=== PATIENT | female | born 1980 | race Caucasian/White ===

== ENCOUNTER 2018-11-26 10:14 | Outpatient (CLI) | payer BC ==
--- NOTE | 2018-11-26 13:49 | XRAY Report ---
Reason: INFLUENZA-LIKE ILLNESS, SHORTNESS OF BREATH Procedure Date: 11/26/2018 Accession Number: [id number] / [id number] Procedure: WCP - Chest 2 View X-Ray CPT Code: 76531 FULL RESULT: EXAM: CHEST RADIOGRAPHY EXAM DATE: 11/26/2018 10:30 AM. CLINICAL HISTORY: INFLUENZA-LIKE ILLNESS, SHORTNESS OF BREATH. COMPARISON: XR CHEST PA AND LAT 10/21/2012 7:59 AM. TECHNIQUE: 2 views. FINDINGS: Lungs/Pleura: There is increased opacity within the lingula. There is no evidence of pleural effusion. No pneumothorax. Mediastinum: Heart and mediastinal contours are unremarkable. Other: None. IMPRESSION: There is increased opacity within the lingula which is suspicious for pneumonia. Interval follow up film posttreatment could be used to demonstrate resolution of this process and to exclude underlying pathology. [facility]
== END 2018-11-26 10:15 | disposition home or self-care (01) ==
LOC: DI.WCP 10:14
PROVIDERS: ATTEND Physician Assistant
DX: B34.9 Viral infection, unspecified (principal); R06.02 Shortness of breath
CPT/HCPCS: 71046; 87275; 87276

== ENCOUNTER 2018-11-26 10:15 | Outpatient (CLI) | payer BC | END 2018-11-26 23:59 | disposition home or self-care (01) | LOC: LAB.R 10:15 | PROVIDERS: ATTEND Physician Assistant | DX: B34.9 Viral infection, unspecified (principal) | CPT/HCPCS: 87275; 87276 ==

== ENCOUNTER 2018-12-03 08:05 | Outpatient (CLI) | payer BC ==
--- NOTE | 2018-12-03 10:39 | XRAY Report ---
Reason: PNEUMONIA Procedure Date: 12/03/2018 Accession Number: [id number] / [id number] Procedure: WCP - Chest 2 View X-Ray CPT Code: 66587 FULL RESULT: EXAM: CHEST RADIOGRAPHY EXAM DATE: 12/03/2018 08:19 AM. CLINICAL HISTORY: Pneumonia. COMPARISON: CHEST 2 VIEW 11/26/2018 10:14 AM XR CHEST PA AND LAT 10/21/2012 7:59 AM. TECHNIQUE: 2 views. FINDINGS: Lungs/Pleura: Stable indistinctness of the left cardiac apex seen only on the frontal projection from the most recent exam, but a new finding when compared to studies of 2012. Remaining lungs are clear. There is no effusion or extraventilatory air. Mediastinum: Heart and mediastinal contours are unremarkable. Other: None. IMPRESSION: 1. Stable exam findings possibly indicating pericardial fat deposition, although vague lingular infiltrate is not entirely excluded. If clinically appropriate, consider follow-up exam in 3 months to ensure expected stability. [facility]
== END 2018-12-03 08:06 | disposition home or self-care (01) ==
LOC: DI.WCP 08:05
PROVIDERS: ATTEND Physician Assistant
DX: J18.9 Pneumonia, unspecified organism (principal)
CPT/HCPCS: 71046

== ENCOUNTER 2018-12-13 15:04 | Outpatient (CLI) | payer BC ==
--- NOTE | 2018-12-13 21:46 | XRAY Report ---
Reason: PNEUMONIA Procedure Date: 12/13/2018 Accession Number: [id number] / [id number] Procedure: WCP - Chest 2 View X-Ray CPT Code: 54695 FULL RESULT: EXAM: CHEST RADIOGRAPHY. EXAM DATE: 12/13/2018 03:17 PM. CLINICAL HISTORY: Pneumonia. Cough. COMPARISON: 12/03/2018. CT abdomen and pelvis 11/09/2009. TECHNIQUE: 2 views. FINDINGS: Lungs/Pleura: Mild indistinctness of the cardiac apex on the plain films due to a large pericardial fat deposit, confirmed on the prior CT exam. No acute focal opacities evident. No pleural effusion. No pneumothorax. Normal volumes. Mediastinum: Heart and mediastinal contours are unremarkable. Other: None. IMPRESSION: Normal 2-view chest radiography. [facility]
== END 2018-12-13 15:05 | disposition home or self-care (01) ==
LOC: DI.WCP 15:04
PROVIDERS: ATTEND Family Medicine
DX: J18.9 Pneumonia, unspecified organism (principal)
CPT/HCPCS: 71046

== ENCOUNTER 2019-05-31 08:00 | Outpatient (CLI) | payer BC ==
[2019-05-31 21:52] LABS: TRICHOMONAS VAGINALIS DNA NEGATIVE (NEGATIVE)
== END 2019-05-31 23:59 | disposition home or self-care (01) ==
LOC: LAB.R 08:00
PROVIDERS: ATTEND Physician Assistant
DX: Z20.2 Contact with and (suspected) exposure to infections with a predominantly sexual mode of transmission (principal)
CPT/HCPCS: 87491; 87591; 87661

== ENCOUNTER 2019-07-27 07:08 | Outpatient (CLI) | payer BC ==
--- NOTE | 2019-07-28 22:35 | Ultrasound Report ---
Reason: IUD SURVEILLANCE Procedure Date: 07/27/2019 Accession Number: [id number] / [id number] Procedure: US - Pelvic w/Transvaginal CPT Code: Final Report FULL RESULT: EXAM: PELVIC ULTRASOUND EXAM DATE: 07/27/2019 08:02 AM. CLINICAL HISTORY: IUD SURVEILLANCE. COMPARISON: None. TECHNIQUE: Realtime transabdominal pelvic scan performed to identify the uterus and adnexa and as an overview of other pelvic structures, followed by transvaginal scan to provide greater detail of the uterus and adnexa, with static image documentation. FINDINGS: Uterus: 8 x 3.8 x 4.6 cm, volume 72.4 cc. Anteverted position. Normal overall size and echotexture. Masses: Intramural leiomyoma in the posterior uterine wall measuring 8 x 8 x 10 mm Endometrium: 3 mm. Normal. Intrauterine contraceptive device in satisfactory position. Cervix: Nabothian cysts. Otherwise unremarkable. Right Ovary: 2.1 x 2.1 x 3 cm, volume 7 cc. Normal echotexture and blood flow. Left Ovary: 2.3 x 1.1 x 2 cm, volume 2.7 cc. Normal echotexture and blood flow. Free Fluid: None. Other: None. IMPRESSION: 1. Intrauterine contraceptive device in appropriate position. 2. Intramural leiomyoma in the posterior uterine wall measuring 8 x 8 x 10 mm. [facility]
== END 2019-07-27 07:09 | disposition home or self-care (01) ==
LOC: DI 07:08
PROVIDERS: ATTEND Physician Assistant
DX: Z30.431 Encounter for routine checking of intrauterine contraceptive device (principal); D25.1 Intramural leiomyoma of uterus
CPT/HCPCS: 76830; 76856

== ENCOUNTER 2019-09-27 08:00 | Outpatient (CLI) | payer BC, OTHER ==
[2019-09-27 20:20] LABS: TRICHOMONAS VAGINALIS DNA NEGATIVE (NEGATIVE)
[2019-09-28 10:41] LABS: HEPATITIS C ANTIBODY NON-REACTIVE (NON-REACTIVE)
[2019-09-28 12:29] LABS: HIV AG/AB 4TH GEN NON-REACTIVE (NON-REACTIVE)
[2019-10-01 14:00] LABS: HSV 2 IGG TYPE SPECIFIC AB <0.90 index
== END 2019-09-27 23:59 | disposition home or self-care (01) ==
LOC: LAB.WCP 08:00
PROVIDERS: ATTEND Physician Assistant
DX: Z11.3 Encounter for screening for infections with a predominantly sexual mode of transmission (principal)
CPT/HCPCS: 36415; 81599; 86695; 86696; 86803; 87389; 87491; 87591; 87661

== ENCOUNTER 2019-12-23 15:51 | Outpatient (CLI) | payer OTHER | END 2019-12-23 15:52 | disposition home or self-care (01) | LOC: COV 15:51 | PROVIDERS: ATTEND Family Medicine | DX: R50.9 Fever, unspecified (principal); J02.9 Acute pharyngitis, unspecified | CPT/HCPCS: 81599 ==